=== PATIENT | female | born 1970 | race Caucasian/White ===

== ENCOUNTER → 2018-01-17 | Outpatient (CLI) | payer MEDICARE ==
[~2018-01-17] MED LIST: ABILIFY5 MG PO; ADDERALL 30 MG30 MG; BACITRACIN 50,000 UNIT VIAL ONE; BACTRIM DS TAB1 EACH PO; BENAZEPRIL HCL10 MG PO; CEFAZOLIN SOD 2 GM/D5W 50ML 50 ML IV ONE; CELECOXIB 200 MG CAP ONE; CYMBALTA30 MG; DEXAMETHASONE SOD PHOS 10 MG/1 ML VIAL ONE; GABAPENTIN 300 MG CAP ONE; MUPIROCIN 2% OINT 22 GM TUBE ONE; NORCO 10-325 T1 EACH; ROPIVACAINE 246.25 MG, EPINEPHRINE HCL 1:1000 0.5 MG, CLONIDINE HCL 0.08 MG, KETOROLAC ... INJ ONE; SOMA350 MG PO; TRANEXAMIC ACID 1,000 MG/10 ML ML ONE; VALIUM10 MG
--- NOTE | 2018-01-17 18:37 | Diagnostic Imaging Report ---
PROCEDURE: Frontal and lateral views of the chest. COMPARISON: None. INDICATIONS: PREOP CXR FINDINGS: Lines/tubes: None. Lungs: The lungs are well inflated and clear. There is no evidence of pneumonia or pulmonary edema. Pleura: There is no pleural effusion or pneumothorax. Heart and mediastinum: The heart and the mediastinum are normal. Bones: No acute bony abnormality. IMPRESSION: No acute cardiopulmonary disease. Dictated by: Rolo Goode M.D. on 01/17/2018 at 18:42 Electronically approved by: Rolo Goode M.D. on 01/17/2018 at 18:42
== END | disposition home or self-care (01) ==
LOC: RAD 05:00 → EDSTATUS 01-20 08:00 → OR 01-20 08:09
PROVIDERS: ATTEND Specialist
DX: M17.11 Unilateral primary osteoarthritis, right knee (principal); Z53.09 Procedure and treatment not carried out because of other contraindication; J44.9 Chronic obstructive pulmonary disease, unspecified; Z01.810 Encounter for preprocedural cardiovascular examination; Z01.818 Encounter for other preprocedural examination; Z68.33 Body mass index [BMI] 33.0-33.9, adult; Z87.891 Personal history of nicotine dependence
CPT/HCPCS: 71046; 81025; 86850; 86900; 86920; 93005; J0171; J1100; J1885; J2795